=== PATIENT | female | born 1950 | race Caucasian/White ===

== ENCOUNTER → 2016-12-09 | Outpatient (CLI) | payer OTHER ==
--- NOTE | 2016-12-09 11:20 | FL ---
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 COMPARISON: None. FINDINGS: Diaphragmatic motion is normal. There is no paradoxical motion. IMPRESSION: NO EVIDENCE OF DIAPHRAGMATIC PARALYSIS AT THIS TIME.
== END | disposition home or self-care (01) ==
LOC: RADFLWHC 10:53
PROVIDERS: ATTEND Internal Medicine Sleep Medicine
DX: J98.6 Disorders of diaphragm (principal)
CPT/HCPCS: 76000

== ENCOUNTER → 2017-07-07 | Outpatient (CLI) | payer MEDICARE, OTHER ==
--- NOTE | 2017-07-08 19:15 | US ---
EXAMINATION TYPE: US kidneys/renal and bladder DATE OF EXAM: 07/07/2017 COMPARISON: 02/16/2012 CLINICAL HISTORY: N18.3 Chronic kidney disease. EXAM MEASUREMENTS: Right Kidney: 9.2 x 4.9 x 5.3 cm Left Kidney: 10.5 x 5.2 x 5.6 cm Post Void Residual Volume: bladder emptied. Right Kidney: couple of renal cysts with larger at mid pole = 2.9 x 2.8 x 2.6cm, this is developing f 2011; mid lateral calcification is noted near cortex = 0.3 x 0.3 x 0.2cm. Left Kidney: couple of renal cysts are noted with largest in lower pole = 0.8 x 0.7 x 0.6cm Bladder: wnl Bilateral Jets seen: Yes Normal Post Void Residual: Yes IMPRESSION: 1. Bilateral renal cysts
== END | disposition home or self-care (01) ==
LOC: RADUSWWP 14:43
PROVIDERS: ATTEND Internal Medicine
DX: N28.1 Cyst of kidney, acquired (principal); N18.3 Chronic kidney disease, stage 3 (moderate)
CPT/HCPCS: 76770

== ENCOUNTER → 2019-01-05 | Day surgery (SDC) | payer MEDICARE, OTHER ==
[2019-01-04 10:20] VITALS: BMI 29.5
[~2019-01-05] MED LIST: LACTATED RINGERS 1,000 ML IV ONE; LACTATED RINGERS 1,000 ML IV SCH; LIDOCAINE 1% 20 ML VIAL (10MG/ML) FOR IV START INTRADERMA ONE; PROPOFOL 10 MG/ML 20 ML VIAL IV ONE
[2019-01-05 10:40] VITALS: TEMP 97.8
--- NOTE | 2019-01-05 12:06 | P.OP ---
Date of Procedure: 01/05/19 Preoperative Diagnosis: Positive cologuard Postoperative Diagnosis: Polyp in ascending colon, polyp in transverse colon, diverticulosis Anesthesia: MAC Surgeon: Santi Patton Estimated Blood Loss (ml): 1 Disposition: same day Description of Procedure: Patient is brought to the Endo suite placed left lateral decubitus position underwent sedation per department of anesthesia timeout performed correct patient correct procedure correct site was verified rectal exam was performed no gross abnormalities are noted scope was passed from the rectum to the cecum with the slowly withdrawn make sure to visualize all benitez of the colon on the way out there was an ascending colon polyp which was snared in a piecemeal fashion and removed. There was a transverse colon polyp which was snared with hot snare and removed completely. Diverticulosis is noted in the sigmoid colon scope was retroflexed in the rectum no other abnormalities are noted patient tolerated procedure well there are no apparent complications she will follow-up in my clinic pending pathology she'll likely need a repeat colonoscopy in 3-5 years
[2019-01-05 12:10] VITALS: RESP 16
[2019-01-05 12:27] VITALS: BP 130/84; PULSE 63
== END | disposition home or self-care (01) ==
LOC: ORWHC2ENDO 10:19
PROVIDERS: ATTEND Student in an Organized Health Care Education/Training Program
DX: D12.3 Benign neoplasm of transverse colon (principal); K63.5 Polyp of colon; K57.30 Diverticulosis of large intestine without perforation or abscess without bleeding; K21.9 Gastro-esophageal reflux disease without esophagitis; E78.5 Hyperlipidemia, unspecified; E78.00 Pure hypercholesterolemia, unspecified; Z81.1 Family history of alcohol abuse and dependence; Z80.8 Family history of malignant neoplasm of other organs or systems; Z87.891 Personal history of nicotine dependence; Z97.2 Presence of dental prosthetic device (complete) (partial); Z79.899 Other long term (current) drug therapy; Z88.8 Allergy status to other drugs, medicaments and biological substances
CPT/HCPCS: 45385; 88305; J2704; 45384